=== PATIENT | female | born 1955 | race Caucasian/White ===

== ENCOUNTER 2016-09-08 20:54 | Inpatient (IN) | payer MEDICAID, OTHER ==
[~2016-09-08] VITALS: Ht 152.4 cm; Wt 52.6 kg
[2016-09-08 21:08] VITALS: BP_SYST 99
[2016-09-08] MEDS ORDERED: NACL 0.9% 1,000 ML IV SCH (21:09)
[2016-09-08 22:11] LABS: PROTHROMBIN TIME 11.3 SECS (9.5-12.5)
[2016-09-08 22:13] LABS: CALCIUM 8.3 mg/dL (8.4-11.0); CREATININE 2.24 mg/dL (0.55-1.30); POTASSIUM 3.6 mmol/L (3.5-5.1)
[2016-09-08 22:18] LABS: ALBUMIN 2.8 g/dL (3.4-4.8); TOTAL BILIRUBIN 0.5 mg/dL (0.0-1.0); TOTAL PROTEIN, SERUM 6.8 g/dL (6.4-8.3)
[2016-09-08 22:24] LABS: HEMATOCRIT 26.7 % (36-48); MEAN CORPUSCULAR HEMOGLOBIN 26 pg (27-31); MEAN CORPUSCULAR HGB CONC 34 % (32-36); MEAN CORPUSCULAR VOLUME 78 fL (79.0-98.0); PLATELET COUNT (AUTO) 314 K/uL (130-430); RED BLOOD CELL COUNT(AUTO) 3.43 MIL/uL (4.2-6.2); WHITE BLOOD COUNT (AUTO) 22.7 K/uL (4.8-10.8)
[2016-09-08 22:39] LABS: BAND % (MANUAL) 19 % (0-6); LYMPHOCYTES % (MANUAL) 4 % (20-46); MONOCYTES % (MANUAL) 3 % (0-11)
[2016-09-08 22:40] LABS: BASOPHILS % (MANUAL) 0 % (0-2); EOSINOPHILS % (MANUAL) 0 % (0-7)
[2016-09-08] MEDS ORDERED: NACL 0.9% 1,000 ML IV ONE (23:00)
[2016-09-08] MEDS ORDERED: cefTRIAXone 1 GM IVPB PREMIX 50 ML IV ONE (23:00)
[2016-09-08] MEDS ORDERED: ACET325C GT (23:02)
[2016-09-08] MEDS ORDERED: AMLO5TAB4 GT (23:04)
[2016-09-08] MEDS ORDERED: LIP20 GT (23:09)
[2016-09-08] MEDS ORDERED: CARB-61 GT (23:10)
[2016-09-08] MEDS ORDERED: CAT1PAT TD (23:11)
[2016-09-08] MEDS ORDERED: CLOP75TA2 GT (23:11)
[2016-09-08] MEDS ORDERED: DOCU-144 GT (23:12)
[2016-09-08] MEDS ORDERED: DIPH25CA83 GT (23:12)
[2016-09-08] MEDS ORDERED: FAMO20TA8 GT (23:13)
[2016-09-08] MEDS ORDERED: MAGNESIUM SULFATE 50 ML IV PRN (23:15)
[2016-09-08] MEDS ORDERED: DOCUSATE SODIUM 100 MG CAPSULE PO PRN (23:15)
[2016-09-08] MEDS ORDERED: ONDANSETRON HCL 4 MG/2 ML VIAL IVP PRN (23:15)
[2016-09-08] MEDS ORDERED: ZOLPIDEM TARTRATE 5 MG TABLET PO PRN (23:15)
[2016-09-08] MEDS ORDERED: LORazepam 2 MG/ML VIAL IVP PRN (23:15)
[2016-09-08] MEDS ORDERED: FLUO10CA65 GT (23:15)
[2016-09-08] MEDS ORDERED: MORPHINE 2 MG/ML INJ. SYRINGE IVP PRN (23:15)
[2016-09-08] MEDS ORDERED: GABA-531 GT (23:15)
[2016-09-08] MEDS ORDERED: INSU100V9 SUBCUT (23:16)
[2016-09-08] MEDS ORDERED: LACT10SO66 GT (23:16)
[2016-09-08] MEDS ORDERED: LIDP TP (23:18)
[2016-09-08] MEDS ORDERED: LEVE500S GT (23:18)
[2016-09-08] MEDS ORDERED: LISI10TA5 GT (23:19)
[2016-09-08] MEDS ORDERED: METO-442 GT (23:20)
[2016-09-08] MEDS ORDERED: LOPE2CAP GT (23:20)
[2016-09-08] MEDS ORDERED: MULT-1189 GT (23:21)
[2016-09-08] MEDS ORDERED: OMEG100T GT (23:23)
[2016-09-08] MEDS ORDERED: ONDA4TAB5 GT (23:24)
[2016-09-08] MEDS ORDERED: TRAM50TA92 GT (23:26)
[2016-09-08] MEDS ORDERED: ACET-2165 GT (23:28)
[2016-09-08] MEDS ORDERED: TAMS-11 GT (23:28)
[2016-09-09] VITALS (9 sets, daily range): BP systolic 96–130
[2016-09-09] MEDS: NACL 0.9% 1,000 ML IV SCH ×2 (00:50→10:15)
[2016-09-09] MEDS: ACETAMINOPHEN 325 MG TABLET PO PRN (03:16)
[2016-09-09 07:08] LABS: HEMATOCRIT 24.9 % (36-48); MEAN CORPUSCULAR HEMOGLOBIN 25 pg (27-31); MEAN CORPUSCULAR HGB CONC 32 % (32-36); MEAN CORPUSCULAR VOLUME 79 fL (79.0-98.0); PLATELET COUNT (AUTO) 242 K/uL (130-430); RED BLOOD CELL COUNT(AUTO) 3.17 MIL/uL (4.2-6.2); RED CELL DISTRIBUTION WIDTH 14.2 % (9.0-15.0)
[2016-09-09 07:17] LABS: WHITE BLOOD COUNT (AUTO) 25.1 K/uL (4.8-10.8)
[2016-09-09 07:21] LABS: CALCIUM 7.1 mg/dL (8.4-11.0); CREATININE 2.28 mg/dL (0.55-1.30); POTASSIUM 3.8 mmol/L (3.5-5.1)
[2016-09-09] MEDS: CARBIDOPA/LEVODOPA 25/100 MG TABLET PO SCH ×3 (10:07→20:59)
[2016-09-09] MEDS: HEPARIN SODIUM,PORCINE 5000 UNITS/ML VIAL SUBCUT SCH ×2 (10:08→21:01)
[2016-09-09] MEDS: metroNIDAZOLE 500 mg/NS 100 ML IV SCH ×3 (10:14→20:59)
[2016-09-09 10:43] LABS: ATYPICAL LYMPHOCYTES % 0 % (0-0); BAND % (MANUAL) 12 % (0-6); BASOPHILS % (MANUAL) 0 % (0-2); EOSINOPHILS % (MANUAL) 0 % (0-7); LYMPHOCYTES % (MANUAL) 3 % (20-46); MONOCYTES % (MANUAL) 5 % (0-11)
[2016-09-09] MEDS ORDERED: VANCOMYCIN HCL 750 MG in NS 250 ML IV SCH (11:00)
[2016-09-09 12:17] LABS: BILIRUBIN,URINE NEGATIVE (NEGATIVE); BLOOD, URINE 3+ (NEGATIVE); CLARITY/URINE HAZY (CLEAR); COLOR,URINE YELLOW (YELLOW); GLUCOSE,URINE NEGATIVE (NEGATIVE); KETONES,URINE NEGATIVE (NEGATIVE); LEUKOCYTE ESTERASE ,URINE 3+ (NEGATIVE); NITRITE, URINE NEGATIVE (NEGATIVE); PROTEIN URINE 1+ (NEGATIVE); UROBILINOGEN,URINE 0.2 (0.2-1.0)
[2016-09-09] MEDS: CEFEPIME 1 GM in D5W 50 ML IV SCH (12:29)
[2016-09-09 12:38] LABS: BACTERIA,URINE MANY /HPF (None Seen); WBC,URINE 50-80 /HPF (0-3)
[2016-09-09 13:05] LABS: IRON (SERUM) 9 mcg/dL (37-145); TOTAL IRON BIND. CAPACITY 127 ug/dL (250-450)
[2016-09-09] MEDS ORDERED: cefTRIAXone 1 GM IVPB PREMIX 50 ML IV SCH (21:00)
[2016-09-10] MEDS: NACL 0.9% 1,000 ML IV SCH ×3 (01:17→15:53)
[2016-09-10 04:09] VITALS: BP_SYST 127
[2016-09-10] MEDS: metroNIDAZOLE 500 mg/NS 100 ML IV SCH ×3 (05:10→20:57)
[2016-09-10 07:09] LABS: HEMATOCRIT 23.7 % (36-48); HEMOGLOBIN 7.5 g/dL (12.0-16.0); MEAN CORPUSCULAR HEMOGLOBIN 25 pg (27-31); MEAN CORPUSCULAR HGB CONC 32 % (32-36); MEAN CORPUSCULAR VOLUME 79 fL (79.0-98.0); PLATELET COUNT (AUTO) 210 K/uL (130-430); RED CELL DISTRIBUTION WIDTH 14.5 % (9.0-15.0)
[2016-09-10 07:20] LABS: WHITE BLOOD COUNT (AUTO) 14.4 K/uL (4.8-10.8)
[2016-09-10 07:27] LABS: CALCIUM 7.4 mg/dL (8.4-11.0); CREATININE 1.82 mg/dL (0.55-1.30); POTASSIUM 3.3 mmol/L (3.5-5.1)
[2016-09-10 08:05] VITALS: BP_SYST 115
[2016-09-10 08:36] LABS: ATYPICAL LYMPHOCYTES % 0 % (0-0); BAND % (MANUAL) 8 % (0-6); LYMPHOCYTES % (MANUAL) 5 % (20-46); MONOCYTES % (MANUAL) 3 % (0-11)
[2016-09-10 08:37] LABS: BASOPHILS % (MANUAL) 0 % (0-2); EOSINOPHILS % (MANUAL) 0 % (0-7)
[2016-09-10] MEDS: CARBIDOPA/LEVODOPA 25/100 MG TABLET PO SCH ×3 (09:36→20:57)
[2016-09-10] MEDS: HEPARIN SODIUM,PORCINE 5000 UNITS/ML VIAL SUBCUT SCH ×2 (09:37→20:57)
[2016-09-10] MEDS: POTASSIUM CHLORIDE 10 MEQ TAB.PRT.SR PO PRN (11:31)
[2016-09-10] MEDS: CEFEPIME 1 GM in D5W 50 ML IV SCH (11:31)
[2016-09-10] MEDS: INSULIN ASPART 100 UNITS/ML, 10 ML VIAL (NovoLOG) SUBCUT PRN ×2 (12:08→21:04)
[2016-09-10 12:58] VITALS: BP_SYST 121
[2016-09-10] MEDS: ACETAMINOPHEN 325 MG TABLET PO PRN (16:01)
[2016-09-10 16:37] VITALS: BP_SYST 129
[2016-09-10 20:00] VITALS: BP_SYST 122
[2016-09-11 00:01] VITALS: BP_SYST 108
[2016-09-11] MEDS: NACL 0.9% 1,000 ML IV SCH ×3 (00:26→22:14)
[2016-09-11 03:55] VITALS: BP_SYST 133
[2016-09-11] MEDS: metroNIDAZOLE 500 mg/NS 100 ML IV SCH ×3 (06:11→21:37)
[2016-09-11 07:28] LABS: BASOPHILS % (AUTO) 0.1 % (0.0-2.0); EOSINOPHILS % (AUTO) 0.2 % (0.0-4.0); HEMATOCRIT 24.5 % (36-48); HEMOGLOBIN 7.9 g/dL (12.0-16.0); LYMPHOCYTES # (AUTO) 0.6 K/uL (1.0-5.5); LYMPHOCYTES % (AUTO) 4.7 % (20.5-51.5); MEAN CORPUSCULAR HEMOGLOBIN 25 pg (27-31); MEAN CORPUSCULAR HGB CONC 32 % (32-36); MEAN CORPUSCULAR VOLUME 77 fL (79.0-98.0); MONOCYTES # (AUTO) 0.6 K/uL (0.0-1.0); MONOCYTES % (AUTO) 4.7 % (1.7-9.3); NEUTROPHILS % (AUTO) 90.3 % (40.0-70.0); PLATELET COUNT (AUTO) 231 K/uL (130-430); RED BLOOD CELL COUNT(AUTO) 3.18 MIL/uL (4.2-6.2); RED CELL DISTRIBUTION WIDTH 14.6 % (9.0-15.0); WHITE BLOOD COUNT (AUTO) 12.2 K/uL (4.8-10.8)
[2016-09-11 07:43] LABS: CALCIUM 7.9 mg/dL (8.4-11.0); CREATININE 1.38 mg/dL (0.55-1.30); POTASSIUM 3.3 mmol/L (3.5-5.1)
[2016-09-11] MEDS: CARBIDOPA/LEVODOPA 25/100 MG TABLET PO SCH ×3 (08:15→21:04)
[2016-09-11] MEDS: POTASSIUM CHLORIDE 10 MEQ TAB.PRT.SR PO PRN (08:15)
[2016-09-11] MEDS: HEPARIN SODIUM,PORCINE 5000 UNITS/ML VIAL SUBCUT SCH ×2 (08:20→21:05)
[2016-09-11 08:41] VITALS: BP_SYST 143
[2016-09-11] MEDS: CEFEPIME 1 GM in D5W 50 ML IV SCH (12:06)
[2016-09-11 13:19] VITALS: BP_SYST 120
[2016-09-11 17:04] VITALS: BP_SYST 156
[2016-09-11 19:35] VITALS: BP_SYST 139
[2016-09-11] MEDS: INSULIN ASPART 100 UNITS/ML, 10 ML VIAL (NovoLOG) SUBCUT PRN (22:11)
[2016-09-12] VITALS (7 sets, daily range): BP systolic 138–164
[2016-09-12] MEDS: NACL 0.9% 1,000 ML IV SCH ×2 (05:35→19:30)
[2016-09-12] MEDS: metroNIDAZOLE 500 mg/NS 100 ML IV SCH ×3 (05:35→22:36)
[2016-09-12 07:05] LABS: BASOPHILS % (AUTO) 0.1 % (0.0-2.0); EOSINOPHILS % (AUTO) 0.1 % (0.0-4.0); HEMATOCRIT 23.9 % (36-48); HEMOGLOBIN 7.6 g/dL (12.0-16.0); LYMPHOCYTES # (AUTO) 0.7 K/uL (1.0-5.5); LYMPHOCYTES % (AUTO) 6.8 % (20.5-51.5); MEAN CORPUSCULAR HEMOGLOBIN 25 pg (27-31); MEAN CORPUSCULAR HGB CONC 32 % (32-36); MEAN CORPUSCULAR VOLUME 78 fL (79.0-98.0); MONOCYTES # (AUTO) 0.5 K/uL (0.0-1.0); MONOCYTES % (AUTO) 5.5 % (1.7-9.3); NEUTROPHILS # (AUTO) 8.8 K/uL (1.8-7.7); NEUTROPHILS % (AUTO) 87.5 % (40.0-70.0); PLATELET COUNT (AUTO) 247 K/uL (130-430); RED BLOOD CELL COUNT(AUTO) 3.06 MIL/uL (4.2-6.2); RED CELL DISTRIBUTION WIDTH 14.5 % (9.0-15.0); WHITE BLOOD COUNT (AUTO) 9.9 K/uL (4.8-10.8)
[2016-09-12 07:21] LABS: CREATININE 1.8 mg/dL (0.55-1.30)
[2016-09-12 07:49] LABS: POTASSIUM 2.8 mmol/L (3.5-5.1)
[2016-09-12] MEDS ORDERED: COMMUNICATION ORDER XX ONE (08:15)
[2016-09-12] MEDS: CARBIDOPA/LEVODOPA 25/100 MG TABLET PO SCH (08:24)
[2016-09-12] MEDS: POTASSIUM CHLORIDE 10 MEQ TAB.PRT.SR PO PRN (08:24)
[2016-09-12] MEDS: HEPARIN SODIUM,PORCINE 5000 UNITS/ML VIAL SUBCUT SCH ×2 (08:25→20:20)
[2016-09-12] MEDS ORDERED: KCL 40 mEq in 100 mL (PREMIX) 100 ML IV ONE (08:30)
[2016-09-12 09:14] LABS: CALCIUM 7.6 mg/dL (8.4-11.0)
[2016-09-12] MEDS ORDERED: KCL 40 mEq in 100 mL (PREMIX) 40 MEQ, LIDOCAINE JECT 2% PF 100 MG 75 MG in NS 150 ML IV ONE (09:15)
[2016-09-12] MEDS ORDERED: ACETAMINOPHEN 650 MG/20.3 ML UDC GT PRN (09:15)
[2016-09-12] MEDS ORDERED: DOCUSATE SODIUM 100 MG/10 ML UDC GT PRN (09:15)
[2016-09-12] MEDS ORDERED: POTASSIUM CHLORIDE 40 MEQ, LIDOCAINE JECT 2% PF 100 MG 75 MG in NS 250 ML IV ONE (10:30)
[2016-09-12] MEDS: CEFEPIME 1 GM in D5W 50 ML IV SCH (11:23)
[2016-09-12] MEDS: CARBIDOPA/LEVODOPA 25/100 MG TABLET GT SCH ×2 (14:29→20:17)
[2016-09-12] MEDS: INSULIN ASPART 100 UNITS/ML, 10 ML VIAL (NovoLOG) SUBCUT PRN ×2 (16:25→20:21)
[2016-09-13 04:26] VITALS: BP_SYST 161
[2016-09-13] MEDS: NACL 0.9% 1,000 ML IV SCH ×2 (05:56→13:35)
[2016-09-13] MEDS: metroNIDAZOLE 500 mg/NS 100 ML IV SCH ×3 (05:57→21:18)
[2016-09-13 07:19] LABS: BASOPHILS % (AUTO) 0.1 % (0.0-2.0); EOSINOPHILS # (AUTO) 0.1 K/uL (0.0-0.4); EOSINOPHILS % (AUTO) 0.5 % (0.0-4.0); HEMATOCRIT 25.4 % (36-48); HEMOGLOBIN 8.1 g/dL (12.0-16.0); LYMPHOCYTES # (AUTO) 0.8 K/uL (1.0-5.5); LYMPHOCYTES % (AUTO) 6.5 % (20.5-51.5); MEAN CORPUSCULAR HEMOGLOBIN 25 pg (27-31); MEAN CORPUSCULAR HGB CONC 32 % (32-36); MEAN CORPUSCULAR VOLUME 79 fL (79.0-98.0); MONOCYTES # (AUTO) 0.6 K/uL (0.0-1.0); MONOCYTES % (AUTO) 4.7 % (1.7-9.3); NEUTROPHILS # (AUTO) 11.4 K/uL (1.8-7.7); NEUTROPHILS % (AUTO) 88.2 % (40.0-70.0); PLATELET COUNT (AUTO) 253 K/uL (130-430); RED BLOOD CELL COUNT(AUTO) 3.23 MIL/uL (4.2-6.2); RED CELL DISTRIBUTION WIDTH 14.8 % (9.0-15.0); WHITE BLOOD COUNT (AUTO) 12.9 K/uL (4.8-10.8)
[2016-09-13 08:00] VITALS: BP_SYST 116
[2016-09-13 08:13] LABS: CALCIUM 7.6 mg/dL (8.4-11.0); CREATININE 1.04 mg/dL (0.55-1.30); POTASSIUM 3.1 mmol/L (3.5-5.1)
[2016-09-13] MEDS: CARBIDOPA/LEVODOPA 25/100 MG TABLET GT SCH ×3 (08:51→20:52)
[2016-09-13] MEDS: HEPARIN SODIUM,PORCINE 5000 UNITS/ML VIAL SUBCUT SCH ×2 (08:53→20:53)
[2016-09-13] MEDS: CEFEPIME 1 GM in D5W 50 ML IV SCH (11:37)
[2016-09-13] MEDS: INSULIN ASPART 100 UNITS/ML, 10 ML VIAL (NovoLOG) SUBCUT PRN (11:46)
[2016-09-13] MEDS: POTASSIUM CHLORIDE 10 MEQ TAB.PRT.SR PO PRN (12:27)
[2016-09-13 12:28] VITALS: BP_SYST 153
[2016-09-13 16:47] VITALS: BP_SYST 153
[2016-09-13] MEDS: POTASSIUM CHLORIDE 20 MEQ in NACL 0.9% 1,000 ML IV SCH (17:27)
[2016-09-13 19:10] VITALS: BP_SYST 125
[2016-09-14 04:04] VITALS: BP_SYST 164
[2016-09-14] MEDS: POTASSIUM CHLORIDE 20 MEQ in NACL 0.9% 1,000 ML IV SCH ×2 (04:07→13:50)
[2016-09-14] MEDS: metroNIDAZOLE 500 mg/NS 100 ML IV SCH ×2 (05:33→13:50)
[2016-09-14 07:08] LABS: BASOPHILS % (AUTO) 0.2 % (0.0-2.0); EOSINOPHILS # (AUTO) 0.2 K/uL (0.0-0.4); EOSINOPHILS % (AUTO) 1.4 % (0.0-4.0); HEMATOCRIT 25.1 % (36-48); HEMOGLOBIN 7.9 g/dL (12.0-16.0); LYMPHOCYTES # (AUTO) 1.2 K/uL (1.0-5.5); LYMPHOCYTES % (AUTO) 10.9 % (20.5-51.5); MEAN CORPUSCULAR HEMOGLOBIN 25 pg (27-31); MEAN CORPUSCULAR HGB CONC 32 % (32-36); MEAN CORPUSCULAR VOLUME 78 fL (79.0-98.0); MONOCYTES # (AUTO) 0.6 K/uL (0.0-1.0); MONOCYTES % (AUTO) 5.1 % (1.7-9.3); NEUTROPHILS % (AUTO) 82.4 % (40.0-70.0); PLATELET COUNT (AUTO) 322 K/uL (130-430); RED BLOOD CELL COUNT(AUTO) 3.22 MIL/uL (4.2-6.2); RED CELL DISTRIBUTION WIDTH 14.8 % (9.0-15.0)
[2016-09-14 07:25] LABS: CALCIUM 7.7 mg/dL (8.4-11.0); CREATININE 0.98 mg/dL (0.55-1.30); POTASSIUM 3.6 mmol/L (3.5-5.1)
[2016-09-14 08:09] VITALS: BP_SYST 151
[2016-09-14] MEDS: CARBIDOPA/LEVODOPA 25/100 MG TABLET GT SCH ×2 (08:15→15:00)
[2016-09-14] MEDS: HEPARIN SODIUM,PORCINE 5000 UNITS/ML VIAL SUBCUT SCH (08:16)
[2016-09-14] MEDS ORDERED: FERROUS FUMARATE/DOCUSATE NA 1 TABLET.SA PO SCH (09:00)
[2016-09-14] MEDS: CEFEPIME 1 GM in D5W 50 ML IV SCH (11:04)
[2016-09-14 11:40] VITALS: BP_SYST 165
[2016-09-14 12:12] VITALS: BP_SYST 165
[2016-09-14 16:24] VITALS: BP_SYST 160
[2016-09-15] MEDS ORDERED: CEFEPIME 1 GM in D5W 50 ML IV SCH (11:00)
== END 2016-09-14 17:05 | DRG 871 ==
LOC: SED 20:54 → STU 23:35
PROVIDERS: ADMIT General Practice; ATTEND General Practice
DX: A41.9 Sepsis, unspecified organism (principal); G93.41 Metabolic encephalopathy; N17.0 Acute kidney failure with tubular necrosis; J69.0 Pneumonitis due to inhalation of food and vomit; E44.0 Moderate protein-calorie malnutrition; E87.1 Hypo-osmolality and hyponatremia; E87.2 Acidosis; N39.0 Urinary tract infection, site not specified; G20 Parkinson's disease; G30.9 Alzheimer's disease, unspecified; F02.80 Dementia in other diseases classified elsewhere, unspecified severity, without behavioral disturbance, psychotic disturbance, mood disturbance, and anxiety; D50.9 Iron deficiency anemia, unspecified; N18.9 Chronic kidney disease, unspecified; E11.22 Type 2 diabetes mellitus with diabetic chronic kidney disease; E87.6 Hypokalemia; E11.65 Type 2 diabetes mellitus with hyperglycemia; Z88.0 Allergy status to penicillin; Z79.4 Long term (current) use of insulin; Z79.899 Other long term (current) drug therapy; Z86.73 Personal history of transient ischemic attack (TIA), and cerebral infarction without residual deficits
CPT/HCPCS: 36415; 71010; 76770; 80048; 80053; 81000-TC; 82272; 82962; 83540-TC; 83550-TC; 83605; 83735-TC; 84302-TC; 84484; 85007; 85025; 85027; 85610-TC; 85730-TC; 87040-TC; 87081; 87086; 87230-TC; 92610-GN; 93005; J0692; J0696; J1644; J1815; J2060; J2270; J2405; J3370; J3475; J3480; J3490; J7030; J7050; J7060